=== PATIENT | female | born 1990 | race Caucasian/White ===

== ENCOUNTER 2017-04-02 18:47 | Emergency (ER) | payer MEDICAID ==
[~2017-04-02] VITALS: Ht 154.9 cm; Wt 74.4 kg
[2017-04-02 18:52] VITALS: BP 124/65
== END 2017-04-02 19:40 | disposition left against medical advice (07) ==
LOC: ED 18:47
DX: Z53.21 Procedure and treatment not carried out due to patient leaving prior to being seen by health care provider (principal)

== ENCOUNTER 2017-09-20 16:39 | Emergency (ER) | payer MEDICAID ==
[~2017-09-20] VITALS: Ht 154.9 cm; Wt 69.8 kg
[2017-09-20 17:07] VITALS: BP 151/78; Ht 154.9 cm; Wt 69.8 kg
== END 2017-09-21 00:36 | disposition left against medical advice (07) ==
LOC: ED 16:39
DX: Z53.21 Procedure and treatment not carried out due to patient leaving prior to being seen by health care provider (principal)

== ENCOUNTER 2018-09-05 10:31 | Emergency (ER) | payer MEDICAID ==
[~2018-09-05] VITALS: Ht 157.5 cm; Wt 73.5 kg
[2018-09-05 10:34] VITALS: Ht 157.5 cm; Wt 73.5 kg
[2018-09-05 11:34] LABS: CARBON DIOXIDE 20.6 mmol/L (21-32); CHLORIDE SERUM 104 mmol/L (98-107); CREATININE SERUM 0.7 mg/dL (0.6-1.0); GFR1 > 60 mL/min; GLUCOSE SERUM 105 mg/dL (74-106); POTASSIUM SERUM 3.8 mmol/L (3.5-5.1); SODIUM SERUM 137 mmol/L (136-145)
[2018-09-05 11:39] LABS: ALKALINE PHOSPHATASE 165 U/L (46-116); ALT/SGPT 37 U/L (14-59); AST/SGOT 27 U/L (15-37); BILIRUBIN TOTAL 0.61 mg/dL (0.20-1.00); TOTAL PROTEIN, SERUM 7.1 g/dL (6.4-8.2)
[2018-09-05 11:45] LABS: BASOPHIL % 0.4 % (0-2); PLATELET COUNT 246 x10^3mcL (130-400)
[2018-09-05 11:47] LABS: RED CELL DISTRIBUTION WIDTH 15.2 % (11.5-14.5)
[2018-09-05 12:53] LABS: microscopic required? YES; urine erythrocyte 1+ (NEGATIVE)
[2018-09-05 13:49] VITALS: BP 103/63
== END 2018-09-05 13:49 | disposition home or self-care (01) ==
LOC: ED 10:31
PROVIDERS: Emergency Medicine
DX: N10 Acute pyelonephritis (principal); R51 Headache
CPT/HCPCS: J0696; J1885; J7030

== ENCOUNTER 2019-04-27 04:10 | Emergency (ER) | payer MEDICAID ==
[~2019-04-27] VITALS: Ht 154.9 cm; Wt 82.1 kg
[2019-04-27 04:16] VITALS: Ht 154.9 cm; Wt 82.1 kg
[2019-04-27 05:12] VITALS: BP 116/75
== END 2019-04-27 05:12 | disposition home or self-care (01) ==
LOC: ED 04:10
DX: K02.9 Dental caries, unspecified (principal); R51 Headache
CPT/HCPCS: J1885